=== PATIENT | female | born 1930 | race Caucasian/White ===

== ENCOUNTER → 2016-09-25 | Day surgery (SDC) | payer BC ==
[2016-09-13 09:56] VITALS: Ht 157.5 cm; Wt 83.6 kg
[~2016-09-25] VITALS: Ht 157.5 cm; Wt 83.6 kg
[~2016-09-25] MED LIST: ADVIN10/60 INH; ALLO100T PO; APIX1TAB PO; ATEN50TA8 PO; ATROPINE SULFATE 0.1 MG/ML 5ML SYR IV PRN; DOXY100C76 PO; ERGO500037 PO; EpHEDrine SULFATE INJ 50 MG/ML AMP IV PRN; FURO-85 PO; INSUINJ8 SC; IPRA1AER2 INH; LIDOCAINE HCL 2% 2 ML VIAL (20MG/ML) ONE; LISI-787 PO; MULT-190 PO; NVLNI SC; NVLRPUC SC; OMEG10007 PO; PANT40TA PO; POTA10TA PO; PROPOFOL IV EMULSION 10 MG/ML 20 ML VIAL IV ONE
--- NOTE | 2016-09-25 13:24 | Endo History and Physical ---
History & Physical Date of Service: Sep 25, 2016. Chief Complaint: heme positive stool Referring Physician: Dr. Naidu History of Present Illness For Colonoscopy Past Surgical History Hx Cardiac Surgery: No Hx Internal Defibrillator: No Hx Pacemaker: No Hx Abdominal Surgery: Yes (CAROLINE BSO, JESSICA) Hx of Implantable Prosthesis: No Hx Post-Op Nausea and Vomiting: No Hx Cancer Surgery: No Hx Thoracic Surgery: No Hx Orthopedic: No Hx Urinary Tract Surgery: No Family History None Social History Smoking Status: Never Smoker Hx Substance Use: No Hx Alcohol Use: No Allergies Coded Allergies: Cephalexin (Verified Allergy, Unknown, RASH, 09/25/16) Ciprofloxacin (Verified Allergy, Unknown, RASH, 09/25/16) Penicillins (Verified Allergy, Unknown, RASH, 09/25/16) Sulfamethoxazole w/Trimethoprim (Verified Allergy, Unknown, RASH, 09/25/16) Valsartan (Verified Allergy, Unknown, RASH, 09/25/16) Current Medications Reported Home Medications Medications Dose Route/Sig Max Daily Dose Days Date Category Dose Instructions Novolin N (Insulin Human NPH) 100 Units/Ml Susp 1 Dose SC BID 09/13/16 Reported 12 UNITS IN AM 10 UNITS IN PM Zestoretic 20-12.5 mg (Lisinopril & Hydrochlorothiazi) 1 Tab Tab 1 Tab PO QAM 09/13/16 Reported K-Tabs (Potassium Chloride) 10 Meq Tab 1 Tab PO BID 09/13/16 Reported Protonix (Pantoprazole Sodium) 40 Mg Tab 40 Mg PO QAM 09/13/16 Reported [place]-3 (Fish Oil) 1 Ea Cap 1 Cap PO BID 09/13/16 Reported Ocuvite Preservision (Multivitamins/Minerals) 1 Tab Tab 1 Tab PO BID 09/13/16 Reported Novolin R (Insulin Human Regular) 100 Units/1 Ml Inj 10 Units SC BID 09/13/16 Reported Lasix (Furosemide) 20 Mg Tab 20 Mg PO QAM 09/13/16 Reported Lasix (Furosemide) 20 Mg Tab 0.5 Tab PO QPM 90 09/13/16 Reported Vitamin D 55510 Unit (Ergocalciferol) 50,000 Unit Cap 50,000 Unit PO MONTHLY 09/13/16 Reported Eliquis (Apixaban) 2.5 Mg Tab 2.5 Mg PO BID 09/13/16 Reported Combivent Respimat (Ipratropium-Albuterol) 1 Aer Aer 1 Puffs INH QID PRN 09/13/16 Reported Tenormin (Atenolol) 50 Mg Tab 50 Mg PO BID 09/13/16 Reported Zyloprim (Allopurinol) 100 Mg Tab 100 Mg PO BID 09/13/16 Reported Advair Diskus 100/50 60 Dose (Fluticasone Prop/Salmeterol) 1 Ea Aerp 1 Puff INH BID 09/13/16 Reported Vital Signs Weight (Kilograms): 83.64 Height (Feet): 5 Height (Inches): 2 Physical Exam General Appearance: + obese Respiratory/Chest: Respiratory effort: no dyspnea Cardiovascular: Heart Auscultation: RRR Abdomen: Inspection & Palpation: soft Assessment and Plan Heme positive stool for colonoscopy
[2016-09-25 13:25] VITALS: TEMP 36.6
--- NOTE | 2016-09-25 13:59 | Discharge Instructions ---
Endoscopy Patient Instructions Date / Procedure(s) Performed Sep 25, 2016. Colonoscopy Allergy Information Coded Allergies: Cephalexin (Verified Allergy, Unknown, RASH, 09/25/16) Ciprofloxacin (Verified Allergy, Unknown, RASH, 09/25/16) Penicillins (Verified Allergy, Unknown, RASH, 09/25/16) Sulfamethoxazole w/Trimethoprim (Verified Allergy, Unknown, RASH, 09/25/16) Valsartan (Verified Allergy, Unknown, RASH, 09/25/16) Discharge Date / Findings Sep 25, 2016. polyp, hemorrhoids Medication Instructions Restart Stopped Medication(s): resume meds Reported Home Medications Medications Dose Route/Sig Max Daily Dose Days Date Category Dose Instructions Novolin N (Insulin Human NPH) 100 Units/Ml Susp 1 Dose SC BID 09/13/16 Reported 12 UNITS IN AM 10 UNITS IN PM Zestoretic 20-12.5 mg (Lisinopril & Hydrochlorothiazi) 1 Tab Tab 1 Tab PO QAM 09/13/16 Reported K-Tabs (Potassium Chloride) 10 Meq Tab 1 Tab PO BID 09/13/16 Reported Protonix (Pantoprazole Sodium) 40 Mg Tab 40 Mg PO QAM 09/13/16 Reported [place]-3 (Fish Oil) 1 Ea Cap 1 Cap PO BID 09/13/16 Reported Ocuvite Preservision (Multivitamins/Minerals) 1 Tab Tab 1 Tab PO BID 09/13/16 Reported Novolin R (Insulin Human Regular) 100 Units/1 Ml Inj 10 Units SC BID 09/13/16 Reported Lasix (Furosemide) 20 Mg Tab 20 Mg PO QAM 09/13/16 Reported Lasix (Furosemide) 20 Mg Tab 0.5 Tab PO QPM 90 09/13/16 Reported Vitamin D 42424 Unit (Ergocalciferol) 50,000 Unit Cap 50,000 Unit PO MONTHLY 09/13/16 Reported Eliquis (Apixaban) 2.5 Mg Tab 2.5 Mg PO BID 09/13/16 Reported Combivent Respimat (Ipratropium-Albuterol) 1 Aer Aer 1 Puffs INH QID PRN 09/13/16 Reported Tenormin (Atenolol) 50 Mg Tab 50 Mg PO BID 09/13/16 Reported Zyloprim (Allopurinol) 100 Mg Tab 100 Mg PO BID 09/13/16 Reported Advair Diskus 100/50 60 Dose (Fluticasone Prop/Salmeterol) 1 Ea Aerp 1 Puff INH BID 09/13/16 Reported Provider Instructions Activity Restrictions - No exercising or heavy lifting for 24 hours. - Do not drink alcohol the day of the procedure. - Do not drive a car or operate machinery until the day after the procedure. - Do not make any important decisions or sign important papers in 24 hours after the procedure. Following Day: - Return to full activity which may include returning to work/school. Diet Start your diet with liquids and light foods (jello, soup, juice, toast). Then eat your usual diet if not nauseated. Treatment For Common After Affects For mild abdominal pain, bloating, or excessive gas: - Rest - Eat lightly - Lie on right side Follow-Up Information Follow-up with as scheduled Anesthesia Information What You Should Know You have had a procedure that required some medicine to reduce anxiety and discomfort. This treatment is called moderate sedation. After receiving the treatment, you may be sleepy, but you will be able to breathe on your own. The effects of the treatment may last for several hours. Follow these instructions along with Activity/Diet recommendations noted above: * Do NOT do anything where dizziness or clumsiness would be dangerous. * Rest quietly at home today, then you can be up and about tomorrow. * Have a responsible person stay with you the rest of today. * You may have had an I.V. today. If so, you may take the dressing off later today. Recommendations Call your doctor if: * Trouble breathing * Continuous vomiting for more than 24 hours * Temperature above 101 degrees * Severe abdominal pain or bloating * Pain not relieved by pain medicine ordered * There is increased drainage or redness from any incision * A large amount of rectal bleeding greater than 2-3 tablespoons. (If you had a polyp/s removed or have hemorrhoids, a small amount of blood - from the rectum is to be expected.) * You have any unanswered questions or concerns. IN THE EVENT OF A SERIOUS EMERGENCY, GO TO THE NEAREST EMERGENCY ROOM Your discharge instructions were prepared by provider Darrell Marshall. Patient Instructions Signature Page Kassie Sanders Patient (or Guardian) Signature/Date: I have read and understand the instructions given to me by my caregivers. Caregiver/RN/Doctor Signature/Date: The above-named patient and/or guardian has received patient instructions on this date. + Original Patient Signature Page (only) stays with chart. Please make copy for patient.
--- NOTE | 2016-09-25 14:03 | GI REPORT ---
Procedure Date: 09/25/2016 1:39 PM Procedure: Colonoscopy Indications: Heme positive stool Medicines: Propofol total dose 100 mg IV, Lidocaine 40 mg IV Complications: No immediate complications. Estimated Blood Loss: Estimated blood loss was minimal. Procedure: Pre-Anesthesia Assessment: - Prior to the procedure, a History and Physical was performed, and patient medications, allergies and sensitivities were reviewed. The patient's tolerance of previous anesthesia was reviewed. - The risks and benefits of the procedure and the sedation options and risks were discussed with the patient. All questions were answered and informed consent was obtained. After I obtained informed consent, the scope was passed under direct vision. Throughout the procedure, the patient's blood pressure, pulse, and oxygen saturations were monitored continuously. The scope was introduced through the anus and advanced to the cecum, identified by appendiceal orifice and ileocecal valve. The colonoscopy was performed without difficulty. The patient tolerated the procedure well. The quality of the bowel preparation was good. Findings: A 3 mm polyp was found at the splenic flexure. The polyp was sessile. The polyp was removed with a cold biopsy forceps. Resection and retrieval were complete. Estimated blood loss was minimal. Non-bleeding internal hemorrhoids were found during endoscopy. The hemorrhoids were mild. Impression: - One 3 mm polyp at the splenic flexure, removed with a cold biopsy forceps. Resected and retrieved. - Non-bleeding internal hemorrhoids. Recommendation: - Discharge patient to home (ambulatory). - Continue present medications. - Await pathology results. - Return to primary care physician LALAN. Darrell Marshall M.D. Darrell Marshall MD 09/25/2016 2:02:39 PM This report has been signed electronically. Note Initiated On: 09/25/2016 1:39 PM I attest to the content of the Intraoperative Record and orders documented therein, exceptions below
[2016-09-25 14:31] VITALS: BP 130/86; PULSE 75; O2SAT 94
--- NOTE | 2016-09-25 14:36 | Anesthesiology Progress Note ---
Anesthesia Post Op Note Date & Time Sep 25, 2016 at 14:35 Vital Signs Pain Intensity: 0 Vital Signs Past 12 Hours Date Time Temp Pulse Resp B/P (MAP) Pulse Ox O2 Delivery O2 Flow Rate FiO2 09/25/16 14:31 75 20 130/86 94 Room Air 09/25/16 14:24 76 20 119/64 94 Room Air 09/25/16 14:17 96 20 91/82 93 Room Air 09/25/16 14:05 77 20 116/61 93 Room Air 09/25/16 13:25 36.6 91 20 134/72 94 Room Air Notes Mental Status: alert / awake / arousable, participated in evaluation Pt Amnestic to Procedure: Yes Nausea / Vomiting: adequately controlled Pain: adequately controlled Airway Patency, RR, SpO2: stable & adequate BP & HR: stable & adequate Hydration State: stable & adequate Anesthetic Complications: no major complications apparent
== END | disposition home or self-care (01) ==
LOC: C.GI 12:10
PROVIDERS: ATTEND Internal Medicine Gastroenterology
DX: R19.5 Other fecal abnormalities (principal); D12.3 Benign neoplasm of transverse colon; K64.8 Other hemorrhoids; Z90.710 Acquired absence of both cervix and uterus; Z90.49 Acquired absence of other specified parts of digestive tract; Z90.722 Acquired absence of ovaries, bilateral; Z90.79 Acquired absence of other genital organ(s); Z79.4 Long term (current) use of insulin

== ENCOUNTER → 2017-03-08 | Day surgery (SDC) | payer BC ==
[2017-02-28 09:54] VITALS: Ht 157.5 cm; Wt 84.1 kg
[~2017-03-08] VITALS: Ht 157.5 cm; Wt 84.1 kg
[~2017-03-08] MED LIST changes: -APIX1TAB PO; -INSUINJ8 SC; -OMEG10007 PO
--- NOTE | 2017-03-08 14:33 | Endo History and Physical ---
History & Physical Date of Service: Mar 08, 2017. Chief Complaint: Anemia Referring Physician: Armando Aragon History of Present Illness For EGD Past Surgical History Hx Cardiac Surgery: No Hx Internal Defibrillator: No Hx Pacemaker: No Hx Abdominal Surgery: Yes (CAROLINE BSO, JESSICA) Hx of Implantable Prosthesis: No Hx Post-Op Nausea and Vomiting: No Hx Cancer Surgery: No Hx Thoracic Surgery: No Hx Orthopedic: No Hx Urinary Tract Surgery: No Family History None Social History Smoking Status: Never Smoker Hx Substance Use: No Hx Alcohol Use: No Allergies Coded Allergies: Cephalexin (Verified Allergy, Intermediate, RASH, 02/28/17) Ciprofloxacin (Verified Allergy, Intermediate, RASH, 02/28/17) Penicillins (Verified Allergy, Intermediate, RASH, 02/28/17) Sulfamethoxazole w/Trimethoprim (Verified Allergy, Intermediate, RASH, 02/28/17) Valsartan (Verified Allergy, Intermediate, RASH, 02/28/17) Current Medications Reported Home Medications Medications Dose Route/Sig Max Daily Dose Days Date Category Dose Instructions Novolin N (Insulin Human NPH) 100 Units/Ml Susp 1 Dose SC BID 09/13/16 Reported 12 UNITS IN AM 10 UNITS IN PM Zestoretic 20-12.5 mg (Lisinopril & Hydrochlorothiazi) 1 Tab Tab 1 Tab PO QAM 09/13/16 Reported K-Tabs (Potassium Chloride) 10 Meq Tab 1 Tab PO BID 09/13/16 Reported Protonix (Pantoprazole Sodium) 40 Mg Tab 40 Mg PO QAM 09/13/16 Reported Ocuvite Preservision (Multivitamins/Minerals) 1 Tab Tab 1 Tab PO BID 09/13/16 Reported Novolin R (Insulin Human Regular) 100 Units/1 Ml Inj 10 Units SC BID 09/13/16 Reported Lasix (Furosemide) 20 Mg Tab 20 Mg PO BID 09/13/16 Reported Vitamin D 62755 Unit (Ergocalciferol) 50,000 Unit Cap 50,000 Unit PO MONTHLY 09/13/16 Reported Combivent Respimat (Ipratropium-Albuterol) 1 Aer Aer 1 Puffs INH QID PRN 09/13/16 Reported Tenormin (Atenolol) 50 Mg Tab 50 Mg PO BID 09/13/16 Reported Zyloprim (Allopurinol) 100 Mg Tab 100 Mg PO BID 09/13/16 Reported Advair Diskus 100/50 60 Dose (Fluticasone Prop/Salmeterol) 1 Ea Aerp 1 Puff INH BID 09/13/16 Reported Vital Signs Weight (Kilograms): 84.09 Height (Feet): 5 Height (Inches): 2 Date Time Temp Pulse Resp B/P (MAP) Pulse Ox O2 Delivery O2 Flow Rate FiO2 03/08/17 13:56 36.5 80 18 143/70 (94) 97 Room Air Physical Exam General Appearance: + obese Respiratory/Chest: Respiratory effort: no dyspnea Cardiovascular: Heart Auscultation: RRR Abdomen: Inspection & Palpation: soft Assessment and Plan Anemia for EGD
--- NOTE | 2017-03-08 15:00 | Discharge Instructions ---
Endoscopy Patient Instructions Date / Procedure(s) Performed Mar 08, 2017. EGD Allergy Information Coded Allergies: Cephalexin (Verified Allergy, Intermediate, RASH, 02/28/17) Ciprofloxacin (Verified Allergy, Intermediate, RASH, 02/28/17) Penicillins (Verified Allergy, Intermediate, RASH, 02/28/17) Sulfamethoxazole w/Trimethoprim (Verified Allergy, Intermediate, RASH, 02/28/17) Valsartan (Verified Allergy, Intermediate, RASH, 02/28/17) Discharge Date / Findings Mar 08, 2017. Gunjan esophagitis Medication Instructions Restart Stopped Medication(s): Diflucan 100 mg a day for 10 days Reported Home Medications Medications Dose Route/Sig Max Daily Dose Days Date Category Dose Instructions Novolin N (Insulin Human NPH) 100 Units/Ml Susp 1 Dose SC BID 09/13/16 Reported 12 UNITS IN AM 10 UNITS IN PM Zestoretic 20-12.5 mg (Lisinopril & Hydrochlorothiazi) 1 Tab Tab 1 Tab PO QAM 09/13/16 Reported K-Tabs (Potassium Chloride) 10 Meq Tab 1 Tab PO BID 09/13/16 Reported Protonix (Pantoprazole Sodium) 40 Mg Tab 40 Mg PO QAM 09/13/16 Reported Ocuvite Preservision (Multivitamins/Minerals) 1 Tab Tab 1 Tab PO BID 09/13/16 Reported Novolin R (Insulin Human Regular) 100 Units/1 Ml Inj 10 Units SC BID 09/13/16 Reported Lasix (Furosemide) 20 Mg Tab 20 Mg PO BID 09/13/16 Reported Vitamin D 12492 Unit (Ergocalciferol) 50,000 Unit Cap 50,000 Unit PO MONTHLY 09/13/16 Reported Combivent Respimat (Ipratropium-Albuterol) 1 Aer Aer 1 Puffs INH QID PRN 09/13/16 Reported Tenormin (Atenolol) 50 Mg Tab 50 Mg PO BID 09/13/16 Reported Zyloprim (Allopurinol) 100 Mg Tab 100 Mg PO BID 09/13/16 Reported Advair Diskus 100/50 60 Dose (Fluticasone Prop/Salmeterol) 1 Ea Aerp 1 Puff INH BID 09/13/16 Reported Provider Instructions Activity Restrictions - No exercising or heavy lifting for 24 hours. - Do not drink alcohol the day of the procedure. - Do not drive a car or operate machinery until the day after the procedure. - Do not make any important decisions or sign important papers in 24 hours after the procedure. Following Day: - Return to full activity which may include returning to work/school. Diet Start your diet with liquids and light foods (jello, soup, juice, toast). Then eat your usual diet if not nauseated. Treatment For Common After Affects For mild abdominal pain, bloating, or excessive gas: - Rest - Eat lightly - Lie on right side Follow-Up Information Follow-up with Armando Aragon as scheduled Anesthesia Information What You Should Know You have had a procedure that required some medicine to reduce anxiety and discomfort. This treatment is called moderate sedation. After receiving the treatment, you may be sleepy, but you will be able to breathe on your own. The effects of the treatment may last for several hours. Follow these instructions along with Activity/Diet recommendations noted above: * Do NOT do anything where dizziness or clumsiness would be dangerous. * Rest quietly at home today, then you can be up and about tomorrow. * Have a responsible person stay with you the rest of today. * You may have had an I.V. today. If so, you may take the dressing off later today. Recommendations Call your doctor if: * Trouble breathing * Continuous vomiting for more than 24 hours * Temperature above 101 degrees * Severe abdominal pain or bloating * Pain not relieved by pain medicine ordered * There is increased drainage or redness from any incision * A large amount of rectal bleeding greater than 2-3 tablespoons. (If you had a polyp/s removed or have hemorrhoids, a small amount of blood - from the rectum is to be expected.) * You have any unanswered questions or concerns. IN THE EVENT OF A SERIOUS EMERGENCY, GO TO THE NEAREST EMERGENCY ROOM Your discharge instructions were prepared by provider Darrell Marshall. Patient Instructions Signature Page Kassie Sanders Patient (or Guardian) Signature/Date: I have read and understand the instructions given to me by my caregivers. Caregiver/RN/Doctor Signature/Date: The above-named patient and/or guardian has received patient instructions on this date. + Original Patient Signature Page (only) stays with chart. Please make copy for patient.
--- NOTE | 2017-03-08 15:19 | Anesthesiology Progress Note ---
Anesthesia Post Op Note Date & Time Mar 08, 2017 at 15:19 Vital Signs Pain Intensity: 0 Vital Signs Past 12 Hours Date Time Temp Pulse Resp B/P (MAP) Pulse Ox O2 Delivery O2 Flow Rate FiO2 03/08/17 15:06 76 16 125/56 (79) 94 Room Air 03/08/17 13:56 36.5 80 18 143/70 (94) 97 Room Air Notes Mental Status: alert / awake / arousable, participated in evaluation Nausea / Vomiting: adequately controlled Pain: adequately controlled Airway Patency, RR, SpO2: stable & adequate BP & HR: stable & adequate Hydration State: stable & adequate Anesthetic Complications: no major complications apparent
[2017-03-08 15:26] VITALS: BP 103/61; PULSE 83; O2SAT 97
--- NOTE | 2017-03-09 00:24 | GI REPORT ---
Procedure Date: 03/08/2017 2:47 PM Procedure: Upper GI endoscopy Indications: Iron deficiency anemia Medicines: Propofol total dose 70 mg IV, Lidocaine 40 mg IV Complications: No immediate complications. Estimated Blood Loss: Estimated blood loss: none. Procedure: Pre-Anesthesia Assessment: - Prior to the procedure, a History and Physical was performed, and patient medications, allergies and sensitivities were reviewed. The patient's tolerance of previous anesthesia was reviewed. - The risks and benefits of the procedure and the sedation options and risks were discussed with the patient. All questions were answered and informed consent was obtained. After obtaining informed consent, the endoscope was passed under direct vision. Throughout the procedure, the patient's blood pressure, pulse, and oxygen saturations were monitored continuously. The On-site loaner was introduced through the mouth, and advanced to the second part of duodenum. The upper GI endoscopy was accomplished without difficulty. The patient tolerated the procedure well. Findings: Patchy candidiasis was found in the upper third of the esophagus. Cells for cytology were obtained by brushing. Estimated blood loss: none. The entire examined stomach was normal. The examined duodenum was normal. A medium diverticulum was found in the second part of the duodenum. Impression: - Monilial esophagitis. Cells for cytology obtained. - Normal stomach. - Normal examined duodenum. Recommendation: - Discharge patient to home (ambulatory). - Diflucan (fluconazole) 100 mg PO daily for 10 days. - Await pathology results. - Return to primary care physician PRN. Darrell Marshall M.D. Darrell Marshall MD 03/08/2017 3:05:45 PM This report has been signed electronically. Note Initiated On: 03/08/2017 2:47 PM I attest to the content of the Intraoperative Record and orders documented therein, exceptions below
== END | disposition home or self-care (01) ==
LOC: C.GI 12:41
PROVIDERS: ATTEND Internal Medicine Gastroenterology
DX: D50.9 Iron deficiency anemia, unspecified (principal); B37.81 Candidal esophagitis; Z90.710 Acquired absence of both cervix and uterus; Z90.49 Acquired absence of other specified parts of digestive tract; E66.9 Obesity, unspecified; J44.9 Chronic obstructive pulmonary disease, unspecified; I10 Essential (primary) hypertension; I48.91 Unspecified atrial fibrillation; K21.9 Gastro-esophageal reflux disease without esophagitis; M19.90 Unspecified osteoarthritis, unspecified site; E11.9 Type 2 diabetes mellitus without complications; M10.9 Gout, unspecified; I27.20 Pulmonary hypertension, unspecified

== ENCOUNTER → 2017-05-01 | Outpatient (CLI) | payer BC ==
[~2017-05-01] MED LIST changes: -ATROPINE SULFATE 0.1 MG/ML 5ML SYR IV PRN; -DOXY100C76 PO; -EpHEDrine SULFATE INJ 50 MG/ML AMP IV PRN; -LIDOCAINE HCL 2% 2 ML VIAL (20MG/ML) ONE; -PROPOFOL IV EMULSION 10 MG/ML 20 ML VIAL IV ONE
[2017-05-01 18:27] LABS: BLOOD UREA NITROGEN 58 mg/dl (7-18); CALCIUM 9.3 mg/dl (8.5-10.1); CARBON DIOXIDE 23 mmol/L (21-32); CREATININE 1.44 mg/dl (0.60-1.20); GLUCOSE 152 mg/dl (70-99); SODIUM 141 mmol/L (136-145)
== END | disposition home or self-care (01) ==
LOC: C.LABMFLN 11:52
PROVIDERS: ATTEND Internal Medicine Cardiovascular Disease
DX: I27.20 Pulmonary hypertension, unspecified (principal); I48.2 Chronic atrial fibrillation; I07.1 Rheumatic tricuspid insufficiency; I50.32 Chronic diastolic (congestive) heart failure; I11.0 Hypertensive heart disease with heart failure

== ENCOUNTER → 2017-06-28 | Outpatient (CLI) | payer BC ==
[~2017-06-28] MED LIST changes: +CEFD300C2 PO; +FURO40TA3 PO; +INSHRIE PO; +NVLNI SQ
[2017-06-28 16:01] LABS: HEMATOCRIT 24.9 % (37-47); HEMOGLOBIN 7.7 g/dL (12.0-16.0); MEAN CELL VOLUME 87.4 fL (80-100); MEAN CORPUSCULAR HGB CONC 30.9 g/dl (32-36); MEAN PLATELET VOLUME 8.7 fL (7.4-10.4); NUCLEATED RED BLOOD CELL ABS 0.03 K/uL (0-0); PLATELET COUNT 175 K/uL (130-400); RED CELL DISTRIBUTION WIDTH CV 20.7 % (11.5-14.5); RED CELL DISTRIBUTION WIDTH SD 67.1 fL (36.4-46.3); WHITE BLOOD COUNT 7.44 K/uL (4.8-10.8)
--- NOTE | 2017-06-28 16:07 | DIAGNOSTIC IMAGING REPORT ---
CHEST 2 VIEWS ROUTINE HISTORY: 87 years-old Female R06.02 Shortness of [id number] Chronic diastolic congestive he acute shortness of breath COMPARISON: Chest radiographs 08/16/2011 TECHNIQUE: PA and lateral views of the chest FINDINGS: Cardiac silhouette is enlarged, unchanged. Atherosclerosis of the aorta. There is no pneumothorax. Moderate right and trace left pleural effusions. Linear opacities of the lateral mid lungs bilaterally suggest areas of atelectasis or scarring. Hazy bibasilar opacities suggest atelectasis. No overt pulmonary edema. Bones of the chest appear grossly intact. Probable calcific tendinosis or calcific bursitis about the left shoulder. IMPRESSION: 1. Cardiomegaly without overt pulmonary edema. 2. Moderate right and trace left pleural effusions with bibasilar opacities suggesting atelectasis. The above report was generated using voice recognition software. It may contain grammatical, syntax or spelling errors. Electronically signed by: Ivan Sow M.D. 06/28/2017 4:06 PM Dictated Date/Time: 06/28/2017 4:04 PM
[2017-06-28 16:41] LABS: BLOOD UREA NITROGEN 94 mg/dl (7-18); CALCIUM 9.2 mg/dl (8.5-10.1); CARBON DIOXIDE 20 mmol/L (21-32); CREATININE 1.85 mg/dl (0.60-1.20); GLUCOSE 79 mg/dl (70-99); POTASSIUM 4.7 mmol/L (3.5-5.1); SODIUM 142 mmol/L (136-145)
== END | disposition home or self-care (01) ==
LOC: C.RAD1850 15:18
PROVIDERS: ATTEND Physician Assistant
DX: I50.32 Chronic diastolic (congestive) heart failure (principal); R06.02 Shortness of breath; I51.7 Cardiomegaly; J81.1 Chronic pulmonary edema; J90 Pleural effusion, not elsewhere classified

== ENCOUNTER 2017-06-29 12:32 | Inpatient (IN) | payer BC, OTHER ==
[2017-06-29] VITALS (16 sets, daily range): BP systolic 104–131; BP diastolic 58–81; PULSE 82–97; TEMP 36.4–37; O2SAT 18–99; Ht 157.5 cm; Wt 84.8 kg
[~2017-06-29] VITALS: Ht 157.5 cm; Wt 84.8 kg
[~2017-06-29 12:32] MED LIST changes: -CEFD300C2 PO; -FURO40TA3 PO; -INSHRIE PO; -NVLNI SQ
--- NOTE | 2017-06-29 12:57 | EMERGENCY ROOM VISIT NOTE ---
History Report prepared by Jesus: Adalberto Wallace Under the Supervision of: Dr. Rg Saldana M.D. First contact with patient: 12:47 Chief Complaint: ABNORMAL LABS Stated Complaint: LOW BLOOD COUNT History of Present Illness The patient is an 87 year old female with a history of heart failure who presents to the Emergency Room with complaints of persistent low blood counts that were detected prior to arrival today. The patient states that she has been short of breath for the past week. She notes that she follows-up with an office for her heart failure, and saw a PA-C there yesterday, and had blood work. The patient was then called today to come here due to low blood counts (7.7 hemoglobin value). She notes that she is usually in the 8-9 range. The patient says that she has had low blood counts before, and last received blood 2 years ago. The bleeding source was not found, but the patient has had blood documented in her stool previously. The patient denies any black or bloody stools currently. She also denies any chest pain or fevers. The patient states that she has had an endoscopy and colonoscopy in the past. She does not wear oxygen at home. Source of History: patient, family Onset: Prior to arrival today Position: other (global) Symptom Intensity: 7.7 Quality: other (low blood counts) Timing: other (persistent) Associated Symptoms: + SOB, No fevers, No chest pain, No melena, No hematochezia Review of Systems See HPI for pertinent positives & negatives. A total of 10 systems reviewed and were otherwise negative. Past Medical & Surgical Medical Problems: (1) SHITAL (acute kidney injury) (2) Heart failure (3) Hematochezia (4) Symptomatic anemia Family History Family history omitted secondary to patient's advanced age. Social History Smoking Status: Never Smoker Smokeless Tobacco Use: No Drug Use: none Housing Status: lives with family Occupation Status: retired Current/Historical Medications Scheduled Allopurinol (Zyloprim), 100 MG PO BID Atenolol (Tenormin), 50 MG PO BID Ergocalciferol (Vitamin D 16379 Unit), 50,000 UNIT PO MONTHLY Fluticasone Prop/Salmeterol (Advair Diskus 100/50 60 Dose), 1 PUFF INH BID Furosemide (Lasix), 40 MG PO BID Insulin Human NPH (Novolin N), 12 UNITS SC QAM Insulin Human NPH (Novolin N), 10 UNITS SQ QPM Insulin Human Regular (Humulin R), 10 UNITS PO BID Lisinopril & Hydrochlorothiazi (Zestoretic 20-12.5 mg), 1 TAB PO QAM Ocuvite Preservision (Ocuvite Preservision), 1 TAB PO BID Pantoprazole (Protonix), 40 MG PO QAM Potassium Chloride (K-Tabs), 10 MEQ PO TID Scheduled PRN Ipratropium-Albuterol (Combivent Respimat), 1 PUFFS INH QID PRN for Shortness of Breath Allergies Coded Allergies: Cephalexin (Verified Allergy, Intermediate, RASH, 06/29/17) Ciprofloxacin (Verified Allergy, Intermediate, RASH, 06/29/17) Penicillins (Verified Allergy, Intermediate, RASH, 06/29/17) Sulfamethoxazole w/Trimethoprim (Verified Allergy, Intermediate, RASH, 06/29) Valsartan (Verified Allergy, Intermediate, RASH, 06/29/17) Physical Exam Vital Signs Date Time Temp Pulse Resp B/P (MAP) Pulse Ox O2 Delivery O2 Flow Rate FiO2 06/29/17 13:52 78 06/29/17 13:46 77 22 138/59 97 Nasal Cannula 2.0 06/29/17 12:55 100 Nasal Cannula 2.0 06/29/17 12:55 100 Nasal Cannula 06/29/17 12:36 36.4 79 18 114/59 97 Room Air Physical Exam GENERAL: Patient is in no acute distress. HEENT: No acute trauma, normocephalic atraumatic, mucous membranes moist, no nasal congestion, no scleral icterus. NECK: No stridor, no adenopathy, no meningismus, trachea is midline. LUNGS: Clear to auscultation bilaterally, no wheeze, no rhonchi, breath sounds equal. HEART: Subtle systolic murmur with a somewhat irregular rhythm and a normal rate. ABDOMEN: Soft, nontender, bowel sounds positive, no hernias, no peritonitis. EXTREMITIES: No cyanosis. Mild bilateral pedal edema. Full range of motion of all the joints without pain or difficulty, no signs for acute trauma. NEUROLOGIC: Oriented x 3, no acute motor or sensory deficits, no focal weakness. SKIN: No rash, no jaundice, no diaphoresis. Pale. Medical Decision & Procedures ER Provider Diagnostic Interpretation: X-ray results as stated below per interpretation by me and the radiologist: SINGLE VIEW CHEST CLINICAL HISTORY: Change in mental status. FINDINGS: An AP, portable, upright chest radiograph is compared to study dated 06/28/2017. The examination is degraded by portable technique and patient rotation. The heart is enlarged and there is atherosclerotic calcification of the thoracic aorta. There is mild pulmonary vascular congestion. There are small pleural effusions. There is increasing airspace opacification at the lung bases. No pneumothorax is seen. The skeletal structures are osteopenic. The bony thorax is grossly intact. Arthritic change is seen in the shoulders. IMPRESSION: 1. Cardiomegaly with mild pulmonary vascular congestion. This has worsened from yesterday. 2. Small pleural effusions. 3. There are increasing bibasilar airspace opacities. This could present mild edema versus a developing infectious/inflammatory pneumonitis. Clinical correlation will be required. Electronically signed by: Rg Crandall M.D. 06/29/2017 1:24 PM Dictated Date/Time: 06/29/2017 1:22 PM Laboratory Results 06/29/17 13:13 Red Blood Count 2.92, Mean Corpuscular Volume 88.0, Mean Corpuscular Hemoglobin 26.4, Mean Corpuscular Hemoglobin Concent 30.0, Mean Platelet Volume 8.9, Neutrophils (%) (Auto) 72.0, Lymphocytes (%) (Auto) 16.4, Monocytes (%) (Auto) 9.2, Eosinophils (%) (Auto) 1.5, Basophils (%) (Auto) 0.4, Neutrophils # (Auto) 5.92, Lymphocytes # (Auto) 1.35, Monocytes # (Auto) 0.76, Eosinophils # (Auto) 0.12, Basophils # (Auto) 0.03 06/29/17 13:13 Test 06/29/17 13:13 White Blood Count 8.22 K/uL (4.8-10.8) Red Blood Count 2.92 M/uL (4.2-5.4) Hemoglobin 7.7 g/dL (12.0-16.0) Hematocrit 25.7 % (37-47) Mean Corpuscular Volume 88.0 fL (80-100) Mean Corpuscular Hemoglobin 26.4 pg (25-34) Mean Corpuscular Hemoglobin Concent 30.0 g/dl (32-36) Platelet Count 192 K/uL (130-400) Mean Platelet Volume 8.9 fL (7.4-10.4) Neutrophils (%) (Auto) 72.0 % Lymphocytes (%) (Auto) 16.4 % Monocytes (%) (Auto) 9.2 % Eosinophils (%) (Auto) 1.5 % Basophils (%) (Auto) 0.4 % Neutrophils # (Auto) 5.92 K/uL (1.4-6.5) Lymphocytes # (Auto) 1.35 K/uL (1.2-3.4) Monocytes # (Auto) 0.76 K/uL (0.11-0.59) Eosinophils # (Auto) 0.12 K/uL (0-0.5) Basophils # (Auto) 0.03 K/uL (0-0.2) RDW Standard Deviation 66.0 fL (36.4-46.3) RDW Coefficient of Variation 20.4 % (11.5-14.5) Immature Granulocyte % (Auto) 0.5 % Immature Granulocyte # (Auto) 0.04 K/uL (0.00-0.02) Nucleated RBC Absolute Count (auto) 0.04 K/uL (0-0) Nucleated Red Blood Cells % 0.5 % Anisocytosis PRESENT Target Cells 1+ Tear Drop Cells OCCASIONAL Ovalocytes 1+ Prothrombin Time 10.7 SECONDS (9.0-12.0) Prothromb Time International Ratio 1.0 (0.9-1.1) Activated Partial Thromboplast Time 21.3 SECONDS (21.0-31.0) Partial Thromboplastin Ratio 0.8 Anion Gap 9.0 mmol/L (3-11) Est Creatinine Clear Calc Drug Dose 21.6 ml/min Estimated GFR () 28.3 Estimated GFR (Non- 24.4 BUN/Creatinine Ratio 47.5 (10-20) Calcium Level 9.0 mg/dl (8.5-10.1) Magnesium Level 2.5 mg/dl (1.8-2.4) Total Bilirubin 0.7 mg/dl (0.2-1) Aspartate Amino Transf (AST/SGOT) 15 U/L (15-37) Alanine Aminotransferase (ALT/SGPT) 13 U/L (12-78) Alkaline Phosphatase 117 U/L (45-117) Troponin I 0.018 ng/ml (0-0.045) Total Protein 6.7 gm/dl (6.4-8.2) Albumin 3.3 gm/dl (3.4-5.0) Globulin 3.4 gm/dl (2.5-4.0) Albumin/Globulin Ratio 1.0 (0.9-2) Thyroid Stimulating Hormone (TSH) 2.380 uIu/ml (0.300-4.500) Laboratory results reviewed by me. ECG Per My Interpretation Indication: SOB/dyspnea Rate (beats per minute): 79 Rhythm: other (poor baseline, possible atrial fibrillation) Findings: LBBB, PVC, other (no ST elevation) Comparison ECG Date: no prior available ED Course 1249: The patient was evaluated in room B12B. A complete history and physical exam was performed. 1356: I reevaluated the patient she is doing fine. I updated her on the situation. She expressed understanding and agreement with the plan. She will be evaluated for further treatment. 1430: Discussed the patient's case with Dr. Dariel Gabriel [facility] chief information security officer. The patient will be evaluated for further management. Medical Decision Differential diagnosis includes but is not limited to anemia, GI bleeding, infection, UTI, electrolyte imbalance, dehydration, pneumonia, cardiac ischemia. There is no leukocytosis. The patient is anemic with a hemoglobin of 7.7. There was no coagulopathy. Renal panel testing shows some renal insufficiency/ dehydration. Blood sugar was low. There was no hepatitis. The patient appears to be in a euthyroid state. EKG shows a possible A. fib, no acute ischemic change. Cardiac enzyme testing 1 is not consistent with acute cardiac injury. Chest x-ray shows some mild CHF, no pneumonia or pneumothorax. Patient presents with shortness of breath and weakness. Her hemoglobin is lower than 8 and this is below her typical range. She has been diagnosed with a slow GI bleed, the source of the bleeding has not been found in the past. The patient was typed and screened. I do think she will require a packed red blood cell transfusion, this could be difficult with her history of CHF. I did talk with the patient and case management. The on-call hospitalist was consulted. The patient's lower blood sugar responded nicely to oral food/juice. She was asymptomatic with the lower sugar value. Medication Reconcilliation Current Medication List: was personally reviewed by me Blood Pressure Screening Patient's blood pressure: Normal blood pressure Consults Time Called: 1425 Consulting Physician: Dr. Dariel SÁNCHEZ chief information security officer Returned Call: 1430 Discussed the patient's case with Dr. Dariel SÁNCHEZ chief information security officer. The patient will be evaluated for further management. Impression Primary Impression: Anemia Additional Impressions: Weakness Afib Hypoglycemia Scribe Attestation The scribe's documentation has been prepared under my direction and personally reviewed by me in its entirety. I confirm that the note above accurately reflects all work, treatment, procedures, and medical decision making performed by me. Departure Information Dispostion Being Evaluated By Hospitalist Referrals Armando Aragon D.O. (PCP) Patient Instructions My [facility] Problem Qualifiers
--- NOTE | 2017-06-29 13:25 | DIAGNOSTIC IMAGING REPORT ---
SINGLE VIEW CHEST CLINICAL HISTORY: Change in mental status. FINDINGS: An AP, portable, upright chest radiograph is compared to study dated 06/28/2017. The examination is degraded by portable technique and patient rotation. The heart is enlarged and there is atherosclerotic calcification of the thoracic aorta. There is mild pulmonary vascular congestion. There are small pleural effusions. There is increasing airspace opacification at the lung bases. No pneumothorax is seen. The skeletal structures are osteopenic. The bony thorax is grossly intact. Arthritic change is seen in the shoulders. IMPRESSION: 1. Cardiomegaly with mild pulmonary vascular congestion. This has worsened from yesterday. 2. Small pleural effusions. 3. There are increasing bibasilar airspace opacities. This could present mild edema versus a developing infectious/inflammatory pneumonitis. Clinical correlation will be required. Electronically signed by: Rg Crandall M.D. 06/29/2017 1:24 PM Dictated Date/Time: 06/29/2017 1:22 PM
[2017-06-29 13:27] LABS: BASO % 0.4 %; BASO ABS # 0.03 K/uL (0-0.2); EOS % 1.5 %; EOS ABS # 0.12 K/uL (0-0.5); HEMATOCRIT 25.7 % (37-47); HEMOGLOBIN 7.7 g/dL (12.0-16.0); IG# 0.04 K/uL (0.00-0.02); LYMPH % 16.4 %; LYMPH ABS # 1.35 K/uL (1.2-3.4); MEAN CORPUSCULAR HEMOGLOBIN 26.4 pg (25-34); MEAN PLATELET VOLUME 8.9 fL (7.4-10.4); MONO % 9.2 %; MONO ABS # 0.76 K/uL (0.11-0.59); NEUT ABS # 5.92 K/uL (1.4-6.5); NUCLEATED RED BLOOD CELL ABS 0.04 K/uL (0-0); PLATELET COUNT 192 K/uL (130-400); RED CELL DISTRIBUTION WIDTH CV 20.4 % (11.5-14.5); WHITE BLOOD COUNT 8.22 K/uL (4.8-10.8)
[2017-06-29 13:36] LABS: PTT PATIENT 21.3 SECONDS (21.0-31.0)
[2017-06-29 13:52] LABS: ALBUMIN 3.3 gm/dl (3.4-5.0); CREATININE 1.83 mg/dl (0.60-1.20); POTASSIUM 4.1 mmol/L (3.5-5.1); TOTAL PROTEIN 6.7 gm/dl (6.4-8.2)
[2017-06-29] MEDS ORDERED: MAGNESIUM HYDROXIDE SUSP 30 ML UDC PO PRN (14:45)
[2017-06-29] MEDS ORDERED: POLYETHYLENE (MIRALAX) 17 GM PACK PO PRN (14:45)
[2017-06-29] MEDS ORDERED: ALUMINUM/MAGNESIUM/SIMETH (MAALOX MAX) 30 ML UDC PO PRN (14:45)
[2017-06-29] MEDS ORDERED: MoRPHine SULFATE 2 MG/ML CARP IV PRN (14:45)
[2017-06-29] MEDS ORDERED: IPRATROPIUM BROMIDE/ALBUTEROL respimat INH INH PRN (14:45)
[2017-06-29] MEDS ORDERED: ONDANSETRON INJ 2 MG/ML 2 ML VIAL IV PRN (14:45)
[2017-06-29] MEDS ORDERED: NVLNI SQ (14:46)
[2017-06-29] MEDS ORDERED: INSHRIE PO (14:46)
[2017-06-29] MEDS ORDERED: FURO40TA3 PO (14:46)
[2017-06-29] MEDS ORDERED: GLUCOSE 10 TABS/TUBE PO PRN (15:00)
[2017-06-29] MEDS ORDERED: GLUCAGON FOR INJ 1 MG VIAL SQ PRN (15:00)
[2017-06-29] MEDS ORDERED: DEXTROSE 50% 50 ML SYR IV PRN (15:00)
[2017-06-29] MEDS ORDERED: GLUCOSE 40% GEL 15 GM TUBE PO PRN (15:00)
--- NOTE | 2017-06-29 15:39 | History and Physical ---
History & Physical Date & Time of Service: Jun 29, 2017 at 14:49 Chief Complaint: Low Blood Count Primary Care Physician: Armando Aragon D.O. History of Present Illness Source: patient 87 y/o F Hx CHF, DM II, CKD III, Chronic AF, COPD, Gout, HTN, anemia due to chronic blood loss. The pt presents at the direction of her PCP for symptomatic anemia. She states that she has been fatigued and SOB with exertion. She denies CP, N/V, dysuria, fevers. The pt was prescribed anticoagulants prior to 6 months ago. She was then worked up for GI blood loss. No source of bleeding was identified and the anticoagulants were DCd despite a high CHADs score. She has required transfusions previously. Her Hb today is 7.7 which is not far off her baseline of 8.5. She does exhibit a degree of volume overload which may be contributing to her dyspnea. Initial labs are also notable for SHITAL and hypoglycemia. Past Medical/Surgical History 1) CHF - unspecified - no recent echo in chart 2) CKD - per records likely CKD III 3) Chronic AF 4) Anemia due to chronic blood loss - no source identified - requires transfusions occasionally - had full workup including endoscopy and colonoscopy 03/09 5) CODP - etiology unknown - has never smoked and did not have 2nd hand exposure 6) DM II 7) HTN 8) Gout Family History Noncontributory Social History Smoking Status: Never Smoker Smokeless Tobacco Use: No Drug Use: none Occupational Status: retired Allergies Coded Allergies: Cephalexin (Verified Allergy, Intermediate, RASH, 02/28/17) Ciprofloxacin (Verified Allergy, Intermediate, RASH, 02/28/17) Penicillins (Verified Allergy, Intermediate, RASH, 02/28/17) Sulfamethoxazole w/Trimethoprim (Verified Allergy, Intermediate, RASH, 02/28/17) Valsartan (Verified Allergy, Intermediate, RASH, 02/28/17) Home Medications Scheduled Allopurinol (Zyloprim), 100 MG PO BID Atenolol (Tenormin), 50 MG PO BID Ergocalciferol (Vitamin D 87560 Unit), 50,000 UNIT PO MONTHLY Fluticasone Prop/Salmeterol (Advair Diskus 100/50 60 Dose), 1 PUFF INH BID Furosemide (Lasix), 40 MG PO BID Insulin Human NPH (Novolin N), 12 UNITS SC QAM Insulin Human NPH (Novolin N), 10 UNITS SQ QPM Insulin Human Regular (Humulin R), 10 UNITS PO BID Lisinopril & Hydrochlorothiazi (Zestoretic 20-12.5 mg), 1 TAB PO QAM Ocuvite Preservision (Ocuvite Preservision), 1 TAB PO BID Pantoprazole (Protonix), 40 MG PO QAM Potassium Chloride (K-Tabs), 10 MEQ PO TID Scheduled PRN Ipratropium-Albuterol (Combivent Respimat), 1 PUFFS INH QID PRN for Shortness of Breath Review of Systems Constitutional: + weakness, + fatigue, No fever, No chills, No sweats Eyes: No worsening of vision ENT: No hearing loss, No nasal symptoms Respiratory: + shortness of breath, No cough, No sputum, No wheezing Cardiovascular: No chest pain, No orthopnea, No PND Abdomen: No pain, No nausea, No vomiting Musculoskeletal: No joint pain Genitourinary - Female: No dysuria, No urinary frequency Neurologic: + weakness, No memory loss, No paralysis Psychiatric: No depression symptoms Endocrine: + fatigue Hematologic / Lymphatic: + abnormal bleeding/bruising (Pt has multiple bruises - chronically bruises easily) Integumentary: No rash Allergic / Immunologic: No environmental allergies Physical Exam Vital Signs Date Time Temp Pulse Resp B/P (MAP) Pulse Ox O2 Delivery O2 Flow Rate FiO2 06/29/17 13:52 78 06/29/17 13:46 77 22 138/59 97 Nasal Cannula 2.0 06/29/17 12:55 100 Nasal Cannula 2.0 06/29/17 12:55 100 Nasal Cannula 06/29/17 12:36 36.4 79 18 114/59 97 Room Air General Appearance: + pertinent finding (PLeasant, elderly female ) Head: normocephalic Eyes: normal inspection ENT: normal ENT inspection, pharynx normal Neck: supple, + JVD Respiratory/Chest: chest non-tender, lungs clear, normal breath sounds, + pertinent finding (Reduced air at bases - lungs are genrally clear) Cardiovascular: + JVD, + systolic murmur, + irregularly irregular Abdomen/GI: normal bowel sounds, non tender, soft Back: normal inspection, no CVA tenderness Extremities/Musculoskelatal: no calf tenderness, normal capillary refill, + pedal edema (mild edema), + pertinent finding (Bruising on all extrems which the pt states is a chronic issue) Neurologic/Psych: unstacker II-XII nml as tested, no motor/sensory deficits, alert, oriented x 3 Skin: + pertinent finding (Extensive bruising on extremities) Diagnostics Laboratory Results Results Past 24 Hours Test 06/29/17 13:13 Range/Units White Blood Count 8.22 4.8-10.8 K/uL Red Blood Count 2.92 4.2-5.4 M/uL Hemoglobin 7.7 12.0-16.0 g/dL Hematocrit 25.7 37-47 % Mean Corpuscular Volume 88.0 80-100 fL Mean Corpuscular Hemoglobin 26.4 25-34 pg Mean Corpuscular Hemoglobin Concent 30.0 32-36 g/dl Platelet Count 192 130-400 K/uL Mean Platelet Volume 8.9 7.4-10.4 fL Neutrophils (%) (Auto) 72.0 % Lymphocytes (%) (Auto) 16.4 % Monocytes (%) (Auto) 9.2 % Eosinophils (%) (Auto) 1.5 % Basophils (%) (Auto) 0.4 % Neutrophils # (Auto) 5.92 1.4-6.5 K/uL Lymphocytes # (Auto) 1.35 1.2-3.4 K/uL Monocytes # (Auto) 0.76 0.11-0.59 K/uL Eosinophils # (Auto) 0.12 0-0.5 K/uL Basophils # (Auto) 0.03 0-0.2 K/uL RDW Standard Deviation 66.0 36.4-46.3 fL RDW Coefficient of Variation 20.4 11.5-14.5 % Immature Granulocyte % (Auto) 0.5 % Immature Granulocyte # (Auto) 0.04 0.00-0.02 K/uL Nucleated RBC Absolute Count (auto) 0.04 0-0 K/uL Nucleated Red Blood Cells % 0.5 % Anisocytosis PRESENT Target Cells 1+ Tear Drop Cells OCCASIONAL Ovalocytes 1+ Prothrombin Time 10.7 9.0-12.0 SECONDS Prothromb Time International Ratio 1.0 0.9-1.1 Activated Partial Thromboplast Time 21.3 21.0-31.0 SECONDS Partial Thromboplastin Ratio 0.8 Sodium Level 140 136-145 mmol/L Potassium Level 4.1 3.5-5.1 mmol/L Chloride Level 111 98-107 mmol/L Carbon Dioxide Level 20 21-32 mmol/L Anion Gap 9.0 3-11 mmol/L Blood Urea Nitrogen 87 7-18 mg/dl Creatinine 1.83 0.60-1.20 mg/dl Est Creatinine Clear Calc Drug Dose 21.6 ml/min Estimated GFR () 28.3 Estimated GFR (Non- 24.4 BUN/Creatinine Ratio 47.5 10-20 Random Glucose 39 70-99 mg/dl Calcium Level 9.0 8.5-10.1 mg/dl Magnesium Level 2.5 1.8-2.4 mg/dl Total Bilirubin 0.7 0.2-1 mg/dl Aspartate Amino Transf (AST/SGOT) 15 15-37 U/L Alanine Aminotransferase (ALT/SGPT) 13 12-78 U/L Alkaline Phosphatase 117 45-117 U/L Troponin I 0.018 0-0.045 ng/ml Total Protein 6.7 6.4-8.2 gm/dl Albumin 3.3 3.4-5.0 gm/dl Globulin 3.4 2.5-4.0 gm/dl Albumin/Globulin Ratio 1.0 0.9-2 Thyroid Stimulating Hormone (TSH) 2.380 0.300-4.500 uIu/ml Diagnostic Radiology CXR: 1. Cardiomegaly with mild pulmonary vascular congestion. This has worsened from yesterday. 2. Small pleural effusions. 3. There are increasing bibasilar airspace opacities. This could present mild edema versus a developing infectious/inflammatory pneumonitis. Clinical correlation will be required. EKG AF, PVCs, controlled rate - evidence of previous inf infarct Impression Assessment and Plan 87 y/o F Hx CHF, DM II, CKD III, Chronic AF, COPD, Gout, HTN, anemia due to chronic blood loss. The pt presents at the direction of her PCP for symptomatic anemia. She states that she has been fatigued and SOB with exertion. She denies CP, N/V, dysuria, fevers. The pt was prescribed anticoagulants prior to 6 months ago. She was then worked up for GI blood loss. No source of bleeding was identified and the anticoagulants were DCd despite a high CHADs score. She has required transfusions previously. Her Hb today is 7.7 which is not far off her baseline of 8.5. She does exhibit a degree of volume overload which may be contributing to her dyspnea. Initial labs are also notable for SHITAL and hypoglycemia. 1) Anemia - chronic/symptomatic - pt to receive 2 units PRBCs - will assess for DC clinically following, daxa it is noted that she is not far off her baseline and there may be additional factors such as CHF and COPD contributing to her symptoms. 2) CHF - we will provide 40mg additional Lasix due to transfusions and mild volume overload clinically. She will continue Atenolol. Lisinopril/HCTZ are held due to SHITAL and administration of additional Lasix. 3) DM - hypoglycemic on admission - we will request frequent POCs and place her on a timed sliding scale with a higher threshold for insulin administration. 4) SHITAL - per labs her baseline creat may be closer to 1.4 - This should improve with Lasix if she is, as suspected, volume overloaded. We will trend her BMP. 5) AF - rate controlled with Atenolol - not a candidate for anticoagulation due to chronic blood loss and bruising. 6) Gout - cont Allopurinol, although we would hold this with any further creat increase. 7) COPD - no evidence of exacerbation - cont prescribed inhalers. 8) HTN - Cont Atenolol, Lasix - HCTZ/Lisin held due to SHITAL Full code - SCDs total time for this admit including review of labs, meds, imaging, EKG, records - discussion with pt and ERR attending - 38 min Resuscitation Status VTE Prophylaxis Will order VTE Prophylaxis: Yes
[2017-06-29] MEDS ORDERED: IV FLUIDS COMPLETED PRN (16:00)
[2017-06-29] MEDS ORDERED: FUROSEMIDE INJ 20 MG in SYRINGE 0 ML IV SCH ×2 (16:15→20:15)
[2017-06-29] MEDS: INSULIN ASPART 100 UNITS/ML 3 ML PEN SC SCH ×2 (16:16→20:51)
[2017-06-29] MEDS: POTASSIUM CHLORIDE 10 MEQ TABCR PO SCH (20:50)
[2017-06-29] MEDS: FLUTICASONE/SALMETEROL 100/50 (ADVAIR) 14 PUFF/1 INHALER INH SCH (20:50)
[2017-06-29] MEDS: CEROVITE ADV FORMULA TAB PO SCH (20:50)
[2017-06-29] MEDS: ALLOPURINOL 100 MG TAB PO SCH (20:50)
[2017-06-29] MEDS: ACETAMINOPHEN 325 MG TAB PO PRN (22:39)
[2017-06-30] VITALS (10 sets, daily range): BP systolic 103–180; BP diastolic 64–94; PULSE 78–94; TEMP 36.5–36.8; O2SAT 78–95
[2017-06-30 02:28] LABS: CREATININE 2.12 mg/dl (0.60-1.20); POTASSIUM 4.7 mmol/L (3.5-5.1)
[2017-06-30] MEDS: INSULIN ASPART 100 UNITS/ML 3 ML PEN SC SCH ×4 (08:06→21:37)
[2017-06-30] MEDS: POTASSIUM CHLORIDE 10 MEQ TABCR PO SCH ×2 (08:07→19:59)
[2017-06-30] MEDS: CEROVITE ADV FORMULA TAB PO SCH ×2 (08:07→19:59)
[2017-06-30] MEDS: FLUTICASONE/SALMETEROL 100/50 (ADVAIR) 14 PUFF/1 INHALER INH SCH ×2 (08:07→19:59)
[2017-06-30] MEDS: ALLOPURINOL 100 MG TAB PO SCH (08:08)
[2017-06-30] MEDS: PANTOprazole SOD 40 MG TAB PO SCH (08:08)
[2017-06-30 08:58] LABS: POTASSIUM 4.4 mmol/L (3.5-5.1)
--- NOTE | 2017-06-30 13:53 | Hospitalist Progress Note ---
Hospitalist Progress Note Date of Service Jun 30, 2017. (Lupe Francis ., NETTAC) Subjective Pt evaluation today including: conversation w/ patient, physical exam, chart review, lab review, review of inpatient medication list Pain: None PO Intake: Tolerating PO diet Voiding: incontinence The patient reports feeling better after receiving the blood. She still complains of some dyspnea on exertion but states that is improving. She also complains of generalized weakness and fatigue, which is also improved. The patient denies fevers, chills, sweats, chest pain, palpitations, claudication, cough, wheezing, shortness of breath at rest, nausea, vomiting, abdominal pain, dysuria, hematuria, urinary retention, paralysis, weakness, numbness and tingling. Additional Comments: See HPI for pertinent positives and negatives. All other systems reviewed and negative. (Lupe Francis ., SRINIVASAN-C) Objective Vital Signs Date Time Temp Pulse Resp B/P (MAP) Pulse Ox O2 Delivery O2 Flow Rate FiO2 06/30/17 12:00 Room Air 06/30/17 11:47 36.7 87 19 118/87 (97) 95 Room Air 06/30/17 08:00 Room Air 06/30/17 07:49 36.7 88 19 113/72 (86) 94 Room Air 06/30/17 04:10 36.6 88 16 117/64 (81) 90 Room Air 06/30/17 04:00 Room Air 06/30/17 01:00 36.5 88 18 125/72 93 06/30/17 00:01 Room Air 06/29/17 23:47 97 115/63 06/29/17 23:37 36.5 82 18 118/71 (87) 95 Room Air 06/29/17 23:17 36.9 92 18 119/75 95 06/29/17 22:30 37.0 93 20 124/72 98 06/29/17 22:15 37.0 90 18 127/72 95 06/29/17 22:03 36.7 91 19 128/78 96 06/29/17 21:57 36.9 86 20 129/75 97 06/29/17 21:15 36.8 93 20 123/81 18 06/29/17 20:46 37.0 93 20 125/79 97 06/29/17 20:15 36.7 91 18 123/75 94 3/9/18 20:00 Room Air 06/29/17 19:40 36.9 83 18 104/58 97 06/29/17 19:25 36.5 90 18 122/75 93 06/29/17 18:15 36.7 94 16 118/71 99 06/29/17 18:00 36.6 87 16 119/70 98 06/29/17 17:45 36.5 86 16 131/76 99 06/29/17 16:00 Room Air 06/29/17 15:45 36.4 88 16 107/62 99 Nasal Cannula 4.0 06/29/17 15:29 81 24 98/67 98 Nasal Cannula 2.0 06/29/17 13:52 78 06/29/17 13:46 77 22 138/59 97 Nasal Cannula 2.0 (Lupe Francis ., PA-C) Physical Exam Notes: General appearance: +Obese. Well-developed, well-nourished, no apparent distress Head: Normocephalic, atraumatic Eyes: Normal inspection, PERRL, EOMI ENT: Normal ENT inspection, hearing grossly normal, pharynx normal Neck: Supple, no JVD, trachea midline Respiratory/Chest: +Fine crackles in bases. Normal breath sounds, no respiratory distress Cardiovascular: +Irregularly irregular, rate controlled. Systolic murmur. No gallop Abdomen/GI: Normal bowel sounds, non-tender, soft Extremities/Musculoskeletal: +Extremities with diffuse ecchymoses. 1-2+ pitting edema bilaterally. No calf tenderness, no pedal edema Neurological/Psych: Alert, normal mood/affect, oriented x 3 Skin: +Ecchymoses on forearms bilaterally where previous IV site had been and where current site is. Ecchymoses on lower legs bilaterally w/blood blister right lateral lower leg. Normal color, warm/dry, no rash (Lupe Francis ., PA-C) Laboratory Results Last 24 Hours Test 06/29/17 14:24 06/29/17 15:57 06/29/17 20:13 06/30/17 01:53 Bedside Glucose 64 mg/dl 103 mg/dl 176 mg/dl Hemoglobin 9.5 g/dL Sodium Level 138 mmol/L Potassium Level 4.7 mmol/L Chloride Level 110 mmol/L Carbon Dioxide Level 18 mmol/L Anion Gap 10.0 mmol/L Blood Urea Nitrogen 85 mg/dl Creatinine 2.12 mg/dl Est Creatinine Clear Calc Drug Dose 18.8 ml/min Estimated GFR () 23.7 Estimated GFR (Non- 20.4 BUN/Creatinine Ratio 40.0 Random Glucose 186 mg/dl Calcium Level 9.0 mg/dl Test 06/30/17 06:44 06/30/17 08:14 Bedside Glucose 207 mg/dl Hemoglobin 9.6 g/dL Sodium Level 139 mmol/L Potassium Level 4.4 mmol/L Chloride Level 109 mmol/L Carbon Dioxide Level 19 mmol/L Anion Gap 11.0 mmol/L Blood Urea Nitrogen 86 mg/dl Creatinine 2.00 mg/dl Est Creatinine Clear Calc Drug Dose 20.0 ml/min Estimated GFR () 25.4 Estimated GFR (Non- 21.9 BUN/Creatinine Ratio 43.2 Random Glucose 227 mg/dl Calcium Level 9.0 mg/dl (Lupe Francis ., PA-C) Assessment and Plan 87 y/o female with a history of a-fib, chronic diastolic CHF, HTN, HLD, COPD, DM II, CKD stage III and gout who presents with symptomatic anemia. Symptomatic acute on chronic anemia--improving -Admit to telemetry. No acute events overnight. Pt in rate controlled a-fib with HR 80s-90s. Stable, will move to med/surg -Pt received 2 units PRBCs upon admission Baseline appears to be between 8-9 -Continue to monitor-Hgb improved to 9.6, up from 7.7 on arrival. Mild exacerbation of chronic diastolic CHF--stable -Pt received IV Lasix w/blood transfusions -Not much urine output recorded, but pt does have incontinence. She reports urinating frequently -Hold off on further Lasix for now given worsening SHITAL SHITAL on CKD stage III--worsening -Creatinine 2.00 on 06/30, up from 1.83. Baseline around 1.4-1.6 -Continue to hold lisinopril/HCTZ and Lasix -Hold allopurinol for now -Hold off on IVF given mild fluid overload UTI POA -Urine culture positive for GNR -Several allergies but had tolerated cefuroxime recently -Rocephin 1 gm IV qd pending sensitivities A-fib--stable, rate controlled -Continue atenolol 50 mg PO BID -No longer on anticoagulation due to h/o bleeding HTN, HLD--stable -Continue atenolol as above, lisinopril/HCTZ on hold as above COPD--stable, no acute exacerbation -Continue Advair BID and Combivent prn DM II--no documented HgbA1c -NPH held -Insulin sliding scale -Check BSGs q ac and qhs -Check HgbA1c in am Gout--stable -Allopurinol on hold due to worsening SHITAL DVT prophylaxis -Hold chemical ppx due to acute anemia -SCDs Code Status -Level I, FULL RESUSCITATION STATUS Dispo -From home w/daughter -PT/OT evaluate and treat (Lupe Francis, PANeryC) Reviewed: Pt Seen/Exam by Me (Ayana Triplett, ) History Pt states she is feeling much improved s/p PRBCs. Still a bit SOB with exertion , but not at rest. No chest pain. Tolerating PO without issue. Pt states some of her abx related rashes are mild and just on her hands, but some are more intense and cover more body areas. She cannot remember which abx were more mild. She does note that she was treated for outpt PNA around [place] and had no issues with a full course of abx. She is unsure what she took at that time. Agree with HPI/ROS as noted by PA (Ayana Triplett, ) General Appearance: WD/WN, no apparent distress Eye Exam: bilateral eye normal inspection, bilateral eye other (nml sclera) Respiratory: normal breath sounds, no respiratory distress Cardiovascular: normal peripheral pulses, regular rate, rhythm Gastrointestinal: non tender, soft Extremities: non-tender, no pedal edema Neurologic/Psychiatric: alert, normal mood/affect, oriented x 3 Skin Characteristics: normal color, warm/dry (Ayana Triplett DO) Assessment/Plan Agree with plan as outlined above Hb improved to 9.6 s/p 2 units PRBC Stool pending for hemoccult Hx of "slow bleed" in the past Mild CHF with PRBC, monitor Abn UA POA with cx noted for gram neg >100K Pharmacy found that pt took doxy, will use that pending sensitivities PT/OT pending Stable for transfer to floor (Ayana Triplett, DO)
[2017-06-30] MEDS: CEFTRIAXONE SOD INJ 1 GM in DEXTROSE 5% ADD-VANTAGE 50ML 50 ML IV SCH (14:38)
[2017-06-30 20:17] LABS: HEMATOCRIT 30.8 % (37-47); HEMOGLOBIN 9.6 g/dL (12.0-16.0)
[2017-06-30] MEDS: ACETAMINOPHEN 325 MG TAB PO PRN (23:20)
[2017-07-01] MEDS: CEROVITE ADV FORMULA TAB PO SCH (07:47)
[2017-07-01] MEDS: POTASSIUM CHLORIDE 10 MEQ TABCR PO SCH (07:47)
[2017-07-01] MEDS: FLUTICASONE/SALMETEROL 100/50 (ADVAIR) 14 PUFF/1 INHALER INH SCH (07:47)
[2017-07-01] MEDS: PANTOprazole SOD 40 MG TAB PO SCH (07:47)
[2017-07-01] MEDS: INSULIN ASPART 100 UNITS/ML 3 ML PEN SC SCH ×2 (08:18→13:06)
[2017-07-01 08:21] VITALS: BP 121/60; PULSE 66; TEMP 36.4; O2SAT 93
[2017-07-01 08:57] LABS: HEMATOCRIT 31.3 % (37-47); HEMOGLOBIN 9.6 g/dL (12.0-16.0); MEAN CELL VOLUME 86.9 fL (80-100); MEAN CORPUSCULAR HEMOGLOBIN 26.7 pg (25-34); MEAN CORPUSCULAR HGB CONC 30.7 g/dl (32-36); MEAN PLATELET VOLUME 9.5 fL (7.4-10.4); PLATELET COUNT 184 K/uL (130-400); RED CELL DISTRIBUTION WIDTH CV 19.8 % (11.5-14.5); RED CELL DISTRIBUTION WIDTH SD 61.9 fL (36.4-46.3)
[2017-07-01 09:23] LABS: CALCIUM 9.1 mg/dl (8.5-10.1); CREATININE 1.81 mg/dl (0.60-1.20); POTASSIUM 4.4 mmol/L (3.5-5.1)
[2017-07-01] MEDS ORDERED: CEFD300C2 PO (11:42)
[2017-07-01 11:48] VITALS: BP 106/72; PULSE 88; O2SAT 93
--- NOTE | 2017-07-01 11:49 | Discharge Instructions ---
Discharge Instructions Date of Service Jul 01, 2017. Admission Reason for Admission: Shaji, Symptomatic Anemia Discharge Discharge Diagnosis / Problem: Symptomatic anemia, acute kidney injury, urinary tract infection Discharge Goals Goal(s): Decrease discomfort, Improve function, Diagnostic testing, Therapeutic intervention Activity Recommendations Activity Limitations: resume your previous activity (as tolerated) . Instructions / Follow-Up Instructions / Follow-Up You were admitted to the hospital after being referred by your primary care provider. You were found to have acute, symptomatic anemia with fatigue and shortness of breath. You were treated with a blood transfusion and have since been feeling much better. On arrival you were also found to have a urinary tract infection as well as acute kidney injury. You have been started on an antibiotic for the infection, and your kidney injury is improving. As you are feeling well, you are medically stable for discharge. Medications: *Please STOP taking allopurinol, furosemide, and lisinopril/HCTZ until you follow up with your primary care provider. These medications can worsen acute kidney injury. When you follow up with your primary care provider, they can reassess your kidney function and potentially restart these medications at that time. *Please take cefdinir 300 mg by mouth daily for 6 more days. This is an antibiotic to treat your urinary tract infection. *Continue your other home medications as prescribed. Follow up: *You will be scheduled to follow up with your primary care provider within the next week regarding your hospital stay and to follow up on your kidney function. *You have been provided a script for a lab draw to check your kidney function. The blood can be drawn by your home health nurses. Please have this blood test done in the next 2-3 days. The results will be forwarded to your primary care provider for review. Please seek medical attention if you experience fevers, chills, sweats, dizziness/lightheadedness, loss of consciousness, chest pain, shortness of breath, nausea, vomiting, numbness or tingling. Current Hospital Diet Patient's current hospital diet: AHA Diet (Heart Healthy), Diabetes Type 2 Diet Discharge Diet Recommended Diet: AHA Diet (Heart Healthy), Diabetes Type 1 Diet Pending Studies Studies pending at discharge: no Laboratory Results Hemoglobin A1c Test 07/01/17 08:34 Range/Units Medical Emergencies . Who to Call and When: Medical Emergencies: If at any time you feel your situation is an emergency, please call 911 immediately. . Non-Emergent Contact Non-Emergency issues call your: Primary Care Provider Call Non-Emergent contact if: you have a fever, you have any medication questions . Past History Medical & Surgical History: (1) UTI (urinary tract infection) (2) Symptomatic anemia (3) SHAJI (acute kidney injury) . "Provider Documentation" section prepared by Lupe Francis. .
--- NOTE | 2017-07-01 12:53 | Discharge Summary ---
Discharge Summary Date of Service Jul 01, 2017. Discharge Summary Admission Date: Jun 30, 2017 at 13:15 Discharge Date: Jul 01, 2017 Discharge Disposition: Home with services Principal Diagnosis: Symptomatic anemia, acute kidney injury, urinary tract infection Problems/Secondary Diagnoses: A-fib, chronic diastolic CHF, HTN, HLD, COPD, DM II, CKD stage III, gout Medication Reconciliation New Medications: Cefdinir (Omnicef) 300 Mg Cap 1 CAP PO DAILY for 6 Days, #6 CAP Continued Medications: Atenolol (Tenormin) 50 Mg Tab 50 MG PO BID, TAB Ergocalciferol (Vitamin D 45456 Unit) 50,000 Unit Cap 32951 UNIT PO MONTHLY, CAP Fluticasone Prop/Salmeterol (Advair Diskus 100/50 60 Dose) 1 Ea Aerp 1 PUFF INH BID, INHALER Insulin Human NPH (Novolin N) 100 Units/Ml Susp 12 UNITS SC QAM Insulin Human NPH (Novolin N) 100 Units/Ml Susp 10 UNITS SQ QPM Insulin Human Regular (Humulin R) 100 Units/Ml Susp 10 UNITS PO BID Ipratropium-Albuterol (Combivent Respimat) 1 Aer Aer 1 PUFFS INH QID PRN for Shortness of Breath, INH Ocuvite Preservision (Ocuvite Preservision) 1 Tab Tab 1 TAB PO BID, TAB Pantoprazole (Protonix) 40 Mg Tab 40 MG PO QAM, TAB Potassium Chloride (K-Tabs) 10 Meq Tab 10 MEQ PO TID Discontinued Medications: Allopurinol (Zyloprim) 100 Mg Tab 100 MG PO BID, TAB Furosemide (Lasix) 40 Mg Tab 40 MG PO BID Lisinopril & Hydrochlorothiazi (Zestoretic 20-12.5 mg) 1 Tab Tab 1 TAB PO QAM Discharge Exam Patient reports feeling well. She only reports very minimal PAZ, but this resolves as long as she "takes things slow." She denies any weakness or fatigue and is eager to return home. The patient denies fevers, chills, sweats , chest pain, palpitations, claudication, cough, wheezing, shortness of breath at rest, nausea, vomiting, abdominal pain, dysuria, hematuria, urinary retention , paralysis, weakness, numbness and tingling. Constitutional: No fever, No chills, No sweats Eyes: No worsening of vision, No eye pain, No diplopia ENT: No hearing loss, No nasal symptoms, No trouble swallowing Respiratory: +PAZ improving. No cough, No wheezing Cardiovascular: No chest pain, No claudication, No palpitations Abdomen: No pain, No nausea, No vomiting Musculoskeletal: No joint pain, No muscle pain, No swelling Genitourinary - Female: No dysuria, No urinary retention, No hematuria Neurologic: No paralysis, No weakness, No numbness/tingling Integumentary: No rash, No itch, No color change General appearance: +Obese. Well-developed, well-nourished, no apparent distress Head: Normocephalic, atraumatic Eyes: Normal inspection, PERRL, EOMI ENT: Normal ENT inspection, hearing grossly normal, pharynx normal Neck: Supple, no JVD, trachea midline Respiratory/Chest: Lungs clear to auscultation, normal breath sounds, no respiratory distress Cardiovascular: +Irregularly irregular, rate controlled. Systolic murmur. No gallop Abdomen/GI: Normal bowel sounds, non-tender, soft Extremities/Musculoskeletal: +Extremities with diffuse ecchymoses. 1-2+ pitting edema bilaterally. No calf tenderness, no pedal edema Neurological/Psych: Alert, normal mood/affect, oriented x 3 Skin: +Circumferential ecchymoses on forearms bilaterally. Ecchymoses on lower legs bilaterally w/blood blister right lateral lower leg. Normal color, warm/dry, no rash Hospital Course 87 y/o female with a history of a-fib, chronic diastolic CHF, HTN, HLD, COPD, DM II, CKD stage III and gout who presents with symptomatic anemia. Symptomatic acute on chronic anemia--resolving -Admit to telemetry. No acute events on tele. Pt in rate controlled a-fib with HR 80s-90s. Stable, will move to med/surg -Pt received 2 units PRBCs upon admission. Baseline appears to be between 8-9 -Hgb remains stable at 9.6 Mild exacerbation of chronic diastolic CHF--stable -Pt received IV Lasix w/blood transfusions -Difficult to measure due to incontinence. She reports urinating frequently -Hold off on further Lasix for now given SHITAL SHITAL on CKD stage III--improving -Creatinine 1.81 on 07/01, down from 2.00. Baseline around 1.4-1.6 -Continue to hold lisinopril/HCTZ, Lasix, allopurinol until follows up with PCP. Script for repeat BMP in a few days given -No IVF given mild fluid overload -SHITAL could be related to UTI UTI POA--stable -Urine culture positive for ivy-sensitive Enterobacter cloacae -Several allergies including Keflex, but had tolerated cefuroxime recently. Macrobid contraindicated given current renal function -Received Rocephin IV while inpatient. D/C with Omnicef 300 mg PO qd x 6 more days (renally dosed) A-fib--stable, rate controlled -Continue atenolol 50 mg PO BID -No longer on anticoagulation due to h/o bleeding HTN, HLD--stable -Continue atenolol as above, lisinopril/HCTZ on hold as above COPD--stable, no acute exacerbation -Continue Advair BID and Combivent prn DM II--no documented HgbA1c -NPH held -Insulin sliding scale -Check BSGs q ac and qhs -HgbA1c pending Gout--stable -Allopurinol on hold due to SHITAL until follows up with PCP DVT prophylaxis -Hold chemical ppx due to acute anemia -SCDs Code Status -Level I, FULL RESUSCITATION STATUS Dispo -From home w/daughter -D/C with home health services Total Time Spent: Greater than 30 minutes This includes examination of the patient, discharge planning, medication reconciliation, and communication with other providers. Discharge Instructions Please refer to the electronic Patient Visit Report (Discharge Instructions) for additional information. Additional Copies To Armando Aragon D.O. Reviewed: Pt Seen/Exam by Me History Pt continues to feel improved. She did well with PT and would like to go home. She states she has a walker with a seat and if she fatigues, she sits down until she feels she is better to move forward. Tolerating PO without issue. Denies chest pain, SOB. Pt states she had substantial bruising after some sort of pole fell on her while she was getting an XR. This was [employer]. Agree with HPI/ROS as noted by PA. General Appearance: WD/WN, no apparent distress Eye Exam: bilateral eye normal inspection, bilateral eye other (nml sclera) Respiratory: normal breath sounds, no respiratory distress Cardiovascular: normal peripheral pulses, regular rate, rhythm Gastrointestinal: non tender, soft Extremities: non-tender, no pedal edema Neurologic/Psychiatric: alert, normal mood/affect, oriented x 3 Skin Characteristics: warm/dry, other (substantial bruising noted on L UE) Assessment/Plan Agree with plan as outlined above Hb improved to 9.6 s/p 2 units PRBC and has maintained. Stool neg for blood Hx of "slow bleed" in the past, however possible that her Hb drop was related to substantial bruising Mild CHF with PRBC Iron studies WNL CBC to be checked with HH prior to f/u with PCP Abn UA POA with cx noted for gram neg >100K Pharmacy found that pt took doxy, finish course as outpt PT/OT feel pt is stable for d/c to home with HH
[2017-07-01] MEDS: CEFTRIAXONE SOD INJ 1 GM in DEXTROSE 5% ADD-VANTAGE 50ML 50 ML IV SCH (13:33)
[2017-07-01 14:23] VITALS: BP 106/72; PULSE 88; TEMP 36.4; O2SAT 93
[2017-07-02 07:37] LABS: HEMOGLOBIN A1C 6.7 % (4.5-5.6)
== END 2017-07-01 15:11 | disposition home or self-care (01) | DRG 812 ==
LOC: C.EDB 12:33 → C.2T 14:48 → ENRESERV 15:07 → OBSVTOIN 06-30 13:15 → ENRESERV 06-30 13:50 → C.MS4W 06-30 15:51
PROVIDERS: ADMIT Internal Medicine; ATTEND Family Medicine
DX: D64.9 Anemia, unspecified (principal); N17.9 Acute kidney failure, unspecified; N39.0 Urinary tract infection, site not specified; I13.0 Hypertensive heart and chronic kidney disease with heart failure and stage 1 through stage 4 chronic kidney disease, or unspecified chronic kidney disease; I50.32 Chronic diastolic (congestive) heart failure; B96.89 Other specified bacterial agents as the cause of diseases classified elsewhere; E11.649 Type 2 diabetes mellitus with hypoglycemia without coma; E11.22 Type 2 diabetes mellitus with diabetic chronic kidney disease; N18.3 Chronic kidney disease, stage 3 (moderate); I48.2 Chronic atrial fibrillation; J44.9 Chronic obstructive pulmonary disease, unspecified; M10.9 Gout, unspecified; Z79.4 Long term (current) use of insulin; Z79.899 Other long term (current) drug therapy; Z88.0 Allergy status to penicillin; Z88.1 Allergy status to other antibiotic agents; Z88.2 Allergy status to sulfonamides; Z88.8 Allergy status to other drugs, medicaments and biological substances

== ENCOUNTER 2017-07-25 14:47 | Emergency (ER) | payer BC ==
[~2017-07-25] VITALS: Ht 160 cm; Wt 87.7 kg
[~2017-07-25 14:47] MED LIST changes: -ALLO100T PO; -FURO-85 PO; +INSHRIE PO; -LISI-787 PO; +NVLNI SQ; -NVLRPUC SC
[2017-07-25 15:07] VITALS: Ht 160 cm; Wt 87.7 kg
--- NOTE | 2017-07-25 15:11 | EMERGENCY ROOM VISIT NOTE ---
History Report prepared by Jesus: Jos Silvestre Under the Supervision of: Dr. Mekhi Miguel M.D. First contact with patient: 14:52 Chief Complaint: HYPOGLYCEMIA Stated Complaint: HYPOGLYCEMIA History of Present Illness The patient is an 87 year old female with a past medical history of diabetes, COPD, and asthma who presents to the ED with a cc of an episode of hypoglycemia occurring earlier today. Positive for a dry mouth. Negative for any vision changes, headache, fever, abdominal pain, and chills. Per nurse, the patient was found to be unresponsive at the GI clinic office today and had a blood glucose level of 30. She notes that the patient was given 25 of dextrose and some orange juice which caused her blood glucose to improve to 219. The patient states that she currently takes insulin and does not take sulfonyl ureas. She notes that she administers her own insulin and has not missed any doses or increased the amount of insulin that she takes. She reports that she lives with her daughter and is currently eating better than she has been. Per daughter, the patient also recently started physical therapy. She states that the patient had a similar episode of hypoglycemia a few weeks ago. The patient notes that she does not check her blood glucose levels as often as she should. She reports that she does not have any other health problems. Source of History: patient, family (daughter), nursing staff Onset: earlier today Position: other (global) Symptom Intensity: blood glucose level of 30 Quality: other (hypoglycemia) Timing: other (an episode) Associated Symptoms: No fevers, No chills, No headache, No abdominal pain Note: The patient also denies any vision changes. She also complains of a dry mouth. Review of Systems See HPI for pertinent positives and negatives. A total of ten systems were reviewed and were otherwise negative. Past Medical & Surgical Medical Problems: (1) SHITAL (acute kidney injury) (2) Asthma (3) COPD (chronic obstructive pulmonary disease) (4) Diabetes (5) Heart failure (6) Hematochezia (7) Symptomatic anemia (8) UTI (urinary tract infection) Surgical Problems: (1) H/O: hysterectomy (2) Hx of cholecystectomy Family History Diabetes mellitus Heart disease Hypertension Social History Smoking Status: Never Smoker Drug Use: none Marital Status: Housing Status: lives with family Occupation Status: retired Current/Historical Medications Scheduled Atenolol (Tenormin), 50 MG PO BID Doxycycline Hyclate (Doxycycline Hyclate), 100 MG PO BID Ergocalciferol (Vitamin D 18596 Unit), 50,000 UNIT PO MONTHLY Febuxostat (Uloric), 40 MG PO DAILY Fluticasone Prop/Salmeterol (Advair Diskus 100/50 60 Dose), 1 PUFF INH BID Insulin Human NPH (Novolin N), 12 UNITS SC QAM Insulin Human NPH (Novolin N), 10 UNITS SQ QPM Insulin Human Regular (Humulin R), 10 UNITS PO BID Ocuvite Preservision (Ocuvite Preservision), 1 TAB PO BID Pantoprazole (Protonix), 40 MG PO QAM Potassium Chloride (K-Tabs), 10 MEQ PO BID Torsemide (Demadex), 20 MG PO BID Scheduled PRN Ipratropium-Albuterol (Combivent Respimat), 1 PUFFS INH QID PRN for Shortness of Breath Allergies Coded Allergies: Cephalexin (Verified Allergy, Intermediate, RASH, 07/25/17) Tolerates second and third generation cephalosporins Ciprofloxacin (Verified Allergy, Intermediate, RASH, 07/25/17) Penicillins (Verified Allergy, Intermediate, RASH, 07/25/17) Sulfamethoxazole w/Trimethoprim (Verified Allergy, Intermediate, RASH, 07/25) Valsartan (Verified Allergy, Intermediate, RASH, 07/25/17) Physical Exam Vital Signs Date Time Temp Pulse Resp B/P (MAP) Pulse Ox O2 Delivery O2 Flow Rate FiO2 07/25/17 15:23 80 07/25/17 15:20 36.3 07/25/17 15:07 83 20 126/61 95 Room Air Physical Exam GENERAL: Awake, alert, well-appearing, NAD HENT: Normocephalic, atraumatic. EYES: Normal conjunctiva. Sclera non-icteric. PERRL, 2mm, no anasarca. NECK: Supple. No nuchal rigidity. FROM. RESPIRATORY: CTAB, no rhonchi, wheezing, crackles CARDIAC: RRR, no MRG ABDOMEN: Soft, NTND, BS+ MSK: No chest wall TTP, no LE edema, right LE is bandaged and in a walking boot. NEURO: GCS 15, CN 2-12 intact, moves all 4s on command, A&O x3. SKIN: No rash or jaundice noted. Medical Decision & Procedures Laboratory Results 07/25/17 15:17 Red Blood Count 3.61, Mean Corpuscular Volume 88.6, Mean Corpuscular Hemoglobin 28.3, Mean Corpuscular Hemoglobin Concent 31.9, Mean Platelet Volume 8.9, Neutrophils (%) (Auto) 76.7, Lymphocytes (%) (Auto) 10.9, Monocytes (%) (Auto) 10.1, Eosinophils (%) (Auto) 0.8, Basophils (%) (Auto) 0.3, Neutrophils # (Auto ) 5.87, Lymphocytes # (Auto) 0.83, Monocytes # (Auto) 0.77, Eosinophils # (Auto ) 0.06, Basophils # (Auto) 0.02 07/25/17 15:17 Test 07/25/17 15:17 07/25/17 17:14 White Blood Count 7.64 K/uL (4.8-10.8) Red Blood Count 3.61 M/uL (4.2-5.4) Hemoglobin 10.2 g/dL (12.0-16.0) Hematocrit 32.0 % (37-47) Mean Corpuscular Volume 88.6 fL (80-100) Mean Corpuscular Hemoglobin 28.3 pg (25-34) Mean Corpuscular Hemoglobin Concent 31.9 g/dl (32-36) Platelet Count 176 K/uL (130-400) Mean Platelet Volume 8.9 fL (7.4-10.4) Neutrophils (%) (Auto) 76.7 % Lymphocytes (%) (Auto) 10.9 % Monocytes (%) (Auto) 10.1 % Eosinophils (%) (Auto) 0.8 % Basophils (%) (Auto) 0.3 % Neutrophils # (Auto) 5.87 K/uL (1.4-6.5) Lymphocytes # (Auto) 0.83 K/uL (1.2-3.4) Monocytes # (Auto) 0.77 K/uL (0.11-0.59) Eosinophils # (Auto) 0.06 K/uL (0-0.5) Basophils # (Auto) 0.02 K/uL (0-0.2) RDW Standard Deviation 67.5 fL (36.4-46.3) RDW Coefficient of Variation 20.8 % (11.5-14.5) Immature Granulocyte % (Auto) 1.2 % Immature Granulocyte # (Auto) 0.09 K/uL (0.00-0.02) Hypochromasia PRESENT Poikilocytosis PRESENT Anisocytosis PRESENT Ovalocytes 1+ Anion Gap 9.0 mmol/L (3-11) Est Creatinine Clear Calc Drug Dose 25.7 ml/min Estimated GFR () 32.7 Estimated GFR (Non- 28.2 BUN/Creatinine Ratio 53.6 (10-20) Calcium Level 8.6 mg/dl (8.5-10.1) Bedside Glucose 88 mg/dl (70-90) Laboratory results reviewed by me ECG Per My Interpretation Indication: altered mental status Rate (beats per minute): 71 Rhythm: atrial fibrillation (controlled) Findings: LBBB, Q waves (Anterior), other (Wide QRS, no sgarbossa criteria) Comparison ECG Date: 06/29/2017 Change: no significant change ED Course 1500: The patient was evaluated in room C8. A complete history and physical exam was performed. 1553: I reevaluated and updated the patient. She is eating. 1615: The patients sugar was rechecked. 1645: I rechecked the patient. She has eaten. 1754: I reevaluated the patient. Discussed results and discharge instructions: She verbalized understanding and agreement. The patient is ready for discharge. Medical Decision Nursing notes reviewed. Ancillary studies and prior records reviewed. The patient is a 87 year old female with a past medical history of diabetes who presents to the ED with a cc of an episode of hypoglycemia occurring earlier today. Positive for a dry mouth. Negative for any vision changes, headache, fever, abdominal pain, and chills. Differential diagnoses include: accidental overdose, improved diet/exercise, stress reaction, medication side effect, insulinoma, and metabolic abnormalities. Patient was seen and evaluated the bedside. Per nursing report as well as family the patient was in GI clinic this morning was found to be less responsive did have a blood glucose check which was in the 30s. Patient did receive 25 g of glucose as well as some orange juice. Patient's repeat ABG was greater than 200. On exam the patient has a nonfocal neurologic exam. Patient does have chronic right lower extremity wound for which she sees wound care. Patient denies any acute symptomatic complaints. Patient is a and O 3 with a GCS of 15. Repeat fingerstick was greater than 100. Patient did have blood work completed along with an EKG. Patient was also given p.o. fluids and crackers. Patient has a normal white blood cell count. Patient does have chronic but stable anemia. Patient does have some baseline CKD. Patient repeat sugar was 60. Patient was given an amp of D50 and a tray. I did speak with the your pharmacist he did have a conversation with the patient. She gave them the recommendations for their insulin use. Head Trauma GCS Score: 15 Medication Reconcilliation Current Medication List: was personally reviewed by me Blood Pressure Screening Patient's blood pressure: Elevated blood pressure Blood pressure disposition: Elevated BP felt to be situational Impression Primary Impression: Hypoglycemia Additional Impressions: Metabolic encephalopathy Hypokalemia Anemia Scribe Attestation The scribe's documentation has been prepared under my direction and personally reviewed by me in its entirety. I confirm that the note above accurately reflects all work, treatment, procedures, and medical decision making performed by me. Departure Information Dispostion Home / Self-Care Referrals Armando Aragon D.O. (PCP) Forms HOME CARE DOCUMENTATION FORM, IMPORTANT VISIT INFORMATION, WORK / SCHOOL INSTRUCTIONS Patient Instructions Hypoglycemia, My [facility] Additional Instructions Please return to the emergency department if you have worsening or recurrent symptoms not amenable to at-home treatment. Please call for a follow-up appointment with her primary care physician. Please take your medications as prescribed. If you have other concerns and/or complaints please feel free to also call your primary care physician's office or return the ED for further evaluation, management, and treatment. Please make sure to take her blood sugar after meals before administering her insulin. Please follow the guidelines as discussed with the pharmacist. Please follow-up with your PCP to discuss further management of her diabetes. You have been examined and treated today on an emergency basis only. This is not a substitute for, or an effort to provide, complete comprehensive medical care. It is impossible to recognize and treat all injuries or illnesses in a single emergency department visit. It is therefore important that you follow up closely with [facility], your PCP, and/or your specialist(s). Call as soon as possible for an appointment. Thank you for your time and consideration. I look forward to speaking with you again soon. Please don't hesitate to call us if you have any questions. Problem Qualifiers Additional Impressions: Anemia Anemia type: unspecified type Qualified Codes: D64.9 - Anemia, unspecified
[2017-07-25 15:20] VITALS: TEMP 36.3
[2017-07-25] MEDS ORDERED: FEBU40TA PO (15:24)
[2017-07-25] MEDS ORDERED: TORS20TA2 PO (15:24)
[2017-07-25] MEDS ORDERED: DXY/100 PO (15:24)
[2017-07-25 15:35] LABS: BASO % 0.3 %; BASO ABS # 0.02 K/uL (0-0.2); EOS % 0.8 %; EOS ABS # 0.06 K/uL (0-0.5); HEMOGLOBIN 10.2 g/dL (12.0-16.0); IG# 0.09 K/uL (0.00-0.02); LYMPH % 10.9 %; LYMPH ABS # 0.83 K/uL (1.2-3.4); MEAN CELL VOLUME 88.6 fL (80-100); MEAN CORPUSCULAR HEMOGLOBIN 28.3 pg (25-34); MEAN CORPUSCULAR HGB CONC 31.9 g/dl (32-36); MEAN PLATELET VOLUME 8.9 fL (7.4-10.4); MONO % 10.1 %; MONO ABS # 0.77 K/uL (0.11-0.59); NEUT % 76.7 %; NEUT ABS # 5.87 K/uL (1.4-6.5); PLATELET COUNT 176 K/uL (130-400); RED CELL DISTRIBUTION WIDTH CV 20.8 % (11.5-14.5); RED CELL DISTRIBUTION WIDTH SD 67.5 fL (36.4-46.3); WHITE BLOOD COUNT 7.64 K/uL (4.8-10.8)
--- NOTE | 2017-07-25 15:45 | Pharmacy Progress Note ---
ED Pharmacist Counseling Note Date of Service: Jul 25, 2017. Talked with patient and daughters about insulin regimen. Patient and daughters report lows mainly during the night. Patient/daughters report that she does not always take her blood glucose prior to going to sleep. I expressed the importance of taking blood glucose regularly. Patient also was reporting improved diet and activity with physical therapy. Explained that insulin has a period of time where its blood glucose lowering effects are greatest or "peak" of activity and may contribute to low blood sugar if more active during this time/have no eaten. Suggested taking blood sugar prior to physical therapy and possibly having snack if lower. Also reiterated that patient should contact her physician who manages her insulin and let him know about the lifestyle changes and low's that she has been having for possible adjustment. Daughter said patient was going to get new glucose monitor tomorrow. Daughters/patients expressed understanding and had no further questions for me.
[2017-07-25 15:48] LABS: CALCIUM 8.6 mg/dl (8.5-10.1); CREATININE 1.62 mg/dl (0.60-1.20); POTASSIUM 3.4 mmol/L (3.5-5.1)
[2017-07-25] MEDS ORDERED: DEXTROSE 50% 50 ML SYR IV ONE (16:15)
[2017-07-25 17:59] VITALS: BP 132/77; PULSE 86; O2SAT 93
== END 2017-07-25 18:00 | disposition home or self-care (01) ==
LOC: EDBD 14:47 → C.EDC 14:48
DX: E11.649 Type 2 diabetes mellitus with hypoglycemia without coma (principal); G93.41 Metabolic encephalopathy; E87.6 Hypokalemia; D64.9 Anemia, unspecified; I50.9 Heart failure, unspecified; J44.9 Chronic obstructive pulmonary disease, unspecified; J45.909 Unspecified asthma, uncomplicated; Z87.440 Personal history of urinary (tract) infections; Z90.710 Acquired absence of both cervix and uterus; Z90.49 Acquired absence of other specified parts of digestive tract; Z83.3 Family history of diabetes mellitus; Z82.49 Family history of ischemic heart disease and other diseases of the circulatory system; Z88.0 Allergy status to penicillin; Z88.1 Allergy status to other antibiotic agents; Z88.2 Allergy status to sulfonamides; Z88.8 Allergy status to other drugs, medicaments and biological substances; Z79.4 Long term (current) use of insulin; Z79.899 Other long term (current) drug therapy